=== PATIENT | male | born 1990 | race Caucasian/White ===

== ENCOUNTER 2019-01-01 15:22 | Outpatient (CLI) | payer OTHER ==
--- NOTE | 2019-01-02 12:47 | MRI Report ---
Reason: UNSPECIFIED INJURY OF RIGHT ANKLE,INITIAL ENCOUNTE Procedure Date: 01/01/2019 Accession Number: [id number] / [id number] Procedure: MRI - Ankle RT W/O CPT Code: FULL RESULT: EXAM: RIGHT ANKLE/HINDFOOT MRI WITHOUT CONTRAST EXAM DATE: 01/01/2019 05:23 PM. CLINICAL HISTORY: Unspecified injury of right ankle, initial encounter. COMPARISON: None. TECHNIQUE: Multiplanar, multisequence T1-weighted and fluid-sensitive sequences of the ankle/hindfoot without contrast. Other: None. FINDINGS: Bones and articular surfaces: Small focus of cartilage fissuring and subchondral edema at the lateral dome of the talus. Moderate fluid in the posterior recess of the ankle joint. Patchy marrow edema at the medial malleolus and adjacent distal medial aspect of the talus. Possible tiny nondisplaced avulsion injury at the anteroinferior aspect of the medial malleolus. No definitive fracture. Musculotendinous structures: The Achilles tendon and plantar fascia appear intact. Small volume of fluid associated with the peroneus longus and brevis tendons. Remaining anterior and posterior ankle tendons appear intact. No significant muscle edema or atrophy. Ligaments: Some edema and thickening associated with the anterior talofibular ligament. Calcaneofibular ligament appears intact. Slight thickening and ill definition of the calcaneofibular ligament. The deep fibers of the deltoid ligament appear at least partially torn. There is thickening of abnormal signal and morphology involving superficial fibers of the deltoid as well. IMPRESSION: 1. Severe sprain of the deltoid ligament with at least partial tear of the deep fibers. 2. Marrow edema consistent with bone contusion and possible tiny nondisplaced avulsion fragment at the anteroinferior aspect of the medial malleolus. 3. Sprain and possible partial tear at the anterior talofibular ligament. 4. Mild peroneus longus and brevis tenosynovitis. [facility] MUSCULOSKELETAL RADIOLOGY SECTION
== END 2019-01-01 15:23 | disposition home or self-care (01) ==
LOC: DI 15:22
PROVIDERS: ATTEND Anesthesiology Pain Medicine
DX: S93.421A Sprain of deltoid ligament of right ankle, initial encounter (principal); S93.491A Sprain of other ligament of right ankle, initial encounter; M65.871 Other synovitis and tenosynovitis, right ankle and foot

== ENCOUNTER 2020-04-08 06:36 | Day surgery (SDC) | payer OTHER ==
[2020-04-08] MEDS ORDERED: KETOROLAC 30 MG/ML VIAL IVP ONE (06:37)
[2020-04-08] MEDS ORDERED: PROPOFOL 200 MG/20 ML VIAL IVP ONE (06:37)
[2020-04-08] MEDS ORDERED: LACTATED RINGERS 1,000 ML IV ONE ×2 (06:59→08:39)
[2020-04-08] MEDS ORDERED: BUPIVACAINE 0.25% PF 30 ML VIAL ONE (07:05)
[2020-04-08] MEDS ORDERED: CEFAZOLIN SODIUM IN 0.9 % NACL 2 GM/100 ML BAG IV ONE (07:08)
--- NOTE | 2020-04-08 07:09 | ANESTHESIA ---
Pre-Anesthesia VS, & Labs - Diagnosis Right ankle pain - Procedure Right ankle brostrom Vital Signs: Temp Pulse Resp BP Pulse Ox 36.6 C 75 18 104/81 H 97 04/08/20 06:30 04/08/20 06:30 04/08/20 06:30 04/08/20 06:30 04/08/20 06:30 Height 5 ft 7 in Weight (kg) 81.65 kg Home Medications and Allergies No Known Home Medications 07/23/16 Allergies/Adverse Reactions: Allergies Allergy/AdvReac Type Severity Reaction Status Date / Time No Known Drug Allergies Allergy Verified 04/06/20 13:36 Anes History & Medical History - Anesthetic History Anesthesia Complications: reports: No previous complications Family history of Anesthesia Complications: Denies Family history of Malignant Hyperthermia: Denies - Medical History Cardiovascular: reports: None Pulmonary: reports: None Gastrointestinal: reports: None Urinary: reports: None Neuro: reports: None Musculoskeletal: reports: Other Endocrine/Autoimmune: reports: None Blood Disorders: reports: None Skin: reports: None Smoking Status: Never smoker Psychosocial: reports: No issues indicated - Surgical History Orthopedic: ACL reconstruction Exam General: Alert, Oriented x3 Dental: WNL Mouth Opening: Greater than 4 Fingerbreadths Neck Mobility: Normal Mallampati classification: I Respiratory: Lungs clear Cardiovascular: Regular rate Mental/Cognitive Status: Alert/Oriented X3 Cognitive Status: Within normal limits Plan Anesthesia Type: General Consent for Procedure(s) Verified and Reviewed: Yes Code Status: Attempt Resuscitation ASA classification: 1-Healthy patient Is this case an emergency?: No
[2020-04-08] MEDS ORDERED: SEVOFLURANE 250 ML LIQUID INH ONE (07:28)
[2020-04-08] MEDS ORDERED: BUPIVACAINE 0.25% PF 30 ML VIAL SUBQ ONE ×3 (07:56)
[2020-04-08] MEDS: HYDROmorphone 1 MG/ML CARPUJECT ONE ×2 (09:18→09:25)
[2020-04-08] MEDS ORDERED: ONDANSETRON 4 MG/2 ML VIAL IVP PRN (09:26)
[2020-04-08] MEDS ORDERED: oxyCODONE 5 MG TABLET PO PRN (09:26)
[2020-04-08] MEDS ORDERED: fentaNYL 100 MCG/2 ML VIAL ONE (09:35)
--- NOTE | 2020-04-08 09:35 | OPERATIVE REPORT ---
Operative Report - Other Other Information/Narrative: Date of Surgery: 08 Apr 2020 Pre-Op Diagnosis: Right ankle instability Procedure: Right ankle lateral ligament repair with internal brace augmentation Postop Diagnosis: Right ankle instability. Right talus osteochondral lesion Primary Surgeon: Rubén Monteiro Secondary Surgeon: Siva Kaur Complications: None Tourniquet Time: 64 minutes EBL: 5 cc Implants: Arthrex 1.35 mm DX fibertak ([id number]) x2 Arthrex internal brace kit Postoperative Protocol: Same day surgery discharge Splint nonweightbearing until 2 weeks At 2 weeks the splint will be removed, sutures will be removed, and he will be placed in a boot At 4 weeks he will be allowed to start walking with a boot on At 8 weeks he can wean from the boot and advance activities as tolerated Indication For Surgery: 29-year-old male with chronic lateral ankle instability and some pain. He notes no significant stiffness and instability was 95% of his problem. He did not trust the ankle to walk on uneven surfaces and requested surgery for stabilization after multiple rounds of physical therapy had failed. The risks, benefits, and alternatives were discussed. Risks include pain, bleeding, infection, damage to nearby structures, numbness, lack of symptom relief, implant complications, nonunion, need for further surgery, DVT, PE, stroke, and . Written consent was obtained. Procedure in Detail: The patient was met in the pre-operative hold area on the day of the procedure. The operative extremity was signed and questions were answered. The patient was brought to the operating room and a general anesthetic was administered. Supine position was used and all bony prominences were padded. Standard prepping and draping was performed. A time out confirmed patient identification, laterality, procedure, allergies, antibiotics, and images. An Esmarch was used to exsanguinate the limb and the tourniquet was elevated to 250 mmHg. Brostrom Procedure with Leon Modification: I then turned my attention to the lateral ligaments. A 5cm incision was made over the lateral ankle coursing in line with the fibers of the ATFL. Incision was carried down to the level of the retinaculum. Full-thickness skin flaps were then elevated. A small full thickness window in the capsule was opened between the ATFL and AITFL 2 mm off of the fibula. A curved hemostat was placed into the joint and the capsule was opened leaving a small cuff of tissue on the fibula. The peroneal tendons were identifed and protected. The fibula cuff was then elevated subperiosteally. The joint was inspected and a partial-thickness lesion of the lateral shoulder of the talus was seen. Wakefield's ligament was excised with a narrow rongeur. The talar neck was then identified and a small window was created in the capsular tissues for visualization. Identified the location for the talar int ernal brace anchor just off the cartilage, and the neck, 7 mm from the sinus Tarsi. I made my trajectory parallel to the bottom of the foot ensuring to not go into the subtalar or the ankle joint. The swivel lock was then placed into the talus without complication. Those sutures were then set aside. The anterior distal fibula bone was then prepped, creating a small trough. Two anchors were then inserted, the first at the CFL footprint and the second at the ATFL footprint. The foot was elevated from the table via the suture anchors to ensure secure fixation. The CFL suture anchor was then passed deep to superficial through the CFL and capsule. The suture from the ATFL anchor was then passed in similar fashion through the ATFL tissue and capsule in the anatomic location. The ankle was placed in neutral dorsiflexion with slight hindfoot valgus and the sutures were tied with 6 knots. All limbs were then passed proximally from deep to superficial through the periosteal layer on the fibula. The sutures were then passed distally through the extensor retinaculum to perform the Leon modification. I then identified to the fibular location of the internal brace and placed the 2 suture tapes into an anchor in the middle of the 2 other fibular anchors. A hemostat was placed under the sutures to ensure that they were not overtightened and the anchor was placed. The retinaculum reduced nicely over the top and knots were again tied. The ankle was then tested and noted to be stable to anterior drawer testing as well as to talar tilt testing. Range of motion was excellent. The wound was then irrigated copiously. Closure was then conducted using 2- 0 Vicryl in a [id number] fashion for the deep tissue layer. The skin was then closed using 3-0 nylon in a mattress r unning suture fashion. 10 mL's of 0.25% Marcaine was injected into the periwound soft tissue . The wounds were then dressed with Arthrex jumpstart, plain 4x4 gauze, and wrapped in sterile Webril. They were then placed in a L and U splint at neutral dorsiflexion and approximately 5 degrees of eversion, awakened from general anesthesia without complication, brought to the Postanesthesia Care Unit for further Recovery.
[2020-04-08] MEDS ORDERED: oxyCODONE 5 MG TABLET ONE (10:06)
[2020-04-08 10:47] VITALS: BP 132/78
[2020-04-08] MEDS ORDERED: LIDOCAINE-MPF 2% 5 ML VIAL IM ONE (18:03)
== END 2020-04-08 06:37 | disposition home or self-care (01) ==
LOC: SDS 06:36
PROVIDERS: ATTEND Orthopaedic Surgery
DX: M25.371 Other instability, right ankle (principal); M89.9 Disorder of bone, unspecified; M25.771 Osteophyte, right ankle